=== PATIENT | female | born 1975 | race Caucasian/White ===

== ENCOUNTER 2016-05-05 12:33 | Outpatient (CLI) ==
--- NOTE | 2016-05-05 14:28 | US ---
EXAM: Pelvic ultrasound. History: Menorrhagia. Technique: Multiple sonographic images through the pelvis were obtained. Color duplex Doppler was used to interrogate vascular flow. Findings: The uterus measures 11 cm x 4 cm x 7 cm and bicornuate uterus is suggested. Endometrium measures between 0.8 cm and 1.0 cm in thickness. No free fluid in the cul-de-sac. Both ovaries are normal in size. Small follicles seen within each ovary. Blood flow is documented within each ovary. Impression: Suggestion of a bicornuate uterus. No acute findings.
== END 2016-05-05 12:34 | disposition home or self-care (01) ==
LOC: RAD 12:33
PROVIDERS: ATTEND Physician Assistant
DX: N92.0 Excessive and frequent menstruation with regular cycle (principal)

== ENCOUNTER 2018-05-11 10:52 | Outpatient (CLI) | END 2018-05-11 10:53 | disposition home or self-care (01) | LOC: CAR 10:52 | PROVIDERS: ATTEND Nurse Practitioner Family | DX: R00.2 Palpitations (principal) | CPT/HCPCS: 93005; 93010 ==

== ENCOUNTER 2018-05-24 06:48 | Outpatient (CLI) ==
--- NOTE | 2018-05-24 10:05 | MAMMO ---
EXAM: Digital screening mammogram with tomosynthesis HISTORY: Screening COMPARISON: None FINDINGS: Digital MLO and CC views of the right and left breast were performed. Tomosynthesis was performed. Computer aided detection utilized. There are scattered fibroglandular densities. There is no evidence for mass, asymmetry, distortion, or suspicious calcifications in either breast. IMPRESSION: 1. No evidence of malignancy in the right or left breast. 2. Annual screening mammogram is recommended in one year. BIRADS category 1, negative examination
--- NOTE | 2018-05-26 10:13 | ECHO2D ---
Date of Exam: 05/24/2018 Ordering Physician: BRENDA ACKERMAN MD Room #: OP Reason for Echo: PALPITATIONS M-Mode Normal Adult Results LV Dimensions Normal Adult Results AoV Opening excursions >1.6 >1.6 LVEDD-base- 3.5-5.8 4.8 Ao root dimensions 2.0-3.7 3.6 LVESD-base- 3.1-4.6 L. Atrium dimensions 1.9-3.8 4.0 Post. Wall thickness 0.8-1.1 1.1 IV septum (thickness) 0.7-1.2 1.0 Post. Wall excursion 0.72-1.3 NORMAL Septal motion NORMAL Systolic motion R. Ventricular cavity 1.5-2.0 NORMAL LVEF 60% 81% Paradoxical septal wall motion NORMAL 2-D : 2-D M Mode Echocardiogram was performed using apical four chamber and left parasternal long and short axis views. Mitral, tricuspid and aortic valves appear to be normal. Contractility of the left ventricle seems to be normal, so is the cavity size. Left atrial cavity size and aortic root appear to be normal. There is no pericardial effusion. There is no thrombus noted in the left ventricular or left aortic cavity. No mitral valve prolapse noted. M-MODE: MV: NORMAL AV: NORMAL TV: NORMAL PV: NORMAL CHAMBER SIZE: NORMAL WALL MOTION: NORMAL PERICARDIUM: NORMAL INTERPRETATION: 1. NORMAL 2'D' 'M' MODE [facility]GRAM [facility]
--- NOTE | 2018-05-29 08:40 | HOLTER ---
PATIENT INFORMATION AND COMMENTS Attending Physician: DR. BRENDA ACKERMAN Indications: PALPITATIONS __ Patient Medications: NO PRESCRIPTION MEDICATIONS __ Pre-procedure Summary: Protocol: Standard Heart Rate Started: 05/24/18937 Minimum: 44 BPM Weight: 197 LBS Ended: 05/25/18937 Maximum: 153 BPM Height: 65" Duration: 24 HOURS Average: 78 BPM _ INTERPRETATIONS/OBSERVATIONS: 1. BASIC RHYTHM: SINUS, RATE 44 BPM TO 150 BPM, AVERAGE 78 BPM 2. FEW PVC'S AND PAC'S --ISOLATED 3. NO ST-T WAVE CHANGES FROM BASELINE 4. ACTIVITY LOG NOT AVAILABLE MTDD
== END 2018-05-24 06:49 | disposition home or self-care (01) ==
LOC: CAR 06:48
PROVIDERS: ATTEND Internal Medicine
DX: Z12.31 Encounter for screening mammogram for malignant neoplasm of breast (principal); R00.2 Palpitations
CPT/HCPCS: 93005; 93010; 93227